=== PATIENT | female | born 1950 | race Caucasian/White ===

== ENCOUNTER → 2016-12-20 | Outpatient (CLI) | payer OTHER ==
[~2016-12-20] MED LIST: AMPICILLIN250 MG PO; Amaryl PO; Ascorbic Acid,Ester- PO; Aspirin E.C. PO; Biotin PO; CALCIUM CITR1 TABLET PO; CELEBREX200 MG PO; Feosol PO; Flexeril PO; LANTUS 3 M100 UNITS/ SC; LYRICA200 MG PO; Lasix PO; Levothroid,Synthroid PO; MAG DELAY64 M1 PO; Micro-K,K-Tab,K-Dur, PO; PRAVACHOL20 MG PO; PROGRAF1 MG PO; Percocet 5/325,Endoc PO; PriLOSEC PO; THERAGRAN1 TABLET PO; VITAMIN D1000 INTUN PO; Vicodin,Norco 5/325 PO; Vitamin B-12 PO; [UNRECOGNIZED DRUG - OTHER] PO; celeXA PO; predniSONE PO
== END | disposition home or self-care (01) ==
LOC: MRI 13:14 → RAD 13:30 → MRI 13:30
DX: R60.9 Edema, unspecified (principal); M19.041 Primary osteoarthritis, right hand; R93.6 Abnormal findings on diagnostic imaging of limbs
CPT/HCPCS: 73218

== ENCOUNTER 2017-07-17 20:03 | Inpatient (IN) | payer OTHER ==
[~2017-07-17] VITALS: Ht 160 cm; Wt 95.5 kg
[~2017-07-17 20:03] MED LIST changes: -Ascorbic Acid,Ester- PO; -Aspirin E.C. PO; +BIOTIN1000 MCG PO; -Biotin PO; +C-10001000 MG PO; +CALCITRATE + D1 EACH PO; -CALCIUM CITR1 TABLET PO; +LASIX20 MG PO; +LO-DOSE ASPIRIN81 M2 PO; -Lasix PO; -Levothroid,Synthroid PO; +PREDNISONE20 MG PO; +SYNTHROID100 MCG PO; -predniSONE PO
[2017-07-17 21:05] LABS: HEMOGLOBIN 12.9 G/DL (11.9-15.5); MCH 31.2 PG (29.0-34.0); MCHC 33.1 G/DL (30.0-36.0); MCV 94.2 FL (83-99); PLATELET COUNT 219 K/uL (156-360); RBC DIS.WIDTH-CV 16.2 % (11.8-14.6); RBC DIS.WIDTH-SD 53.9 % (39-53); RED BLOOD COUNT 4.14 M/uL (3.80-5.20); WHITE BLOOD COUNT 8.1 K/uL (4.1-10.2)
[2017-07-17 21:26] LABS: CHLORIDE 113 mEq/L (99-109); SODIUM 142 mEq/L (136-147)
[2017-07-17 21:27] LABS: GLUCOSE 100 mg/dL (70-99)
[2017-07-17 21:31] LABS: CREATININE 1.5 mg/dL (0.6-1.3); GFR ESTIMATE (CALCULATED) 37 mL/min/
[2017-07-17 21:32] LABS: UREA NITROGEN (BUN) 21 mg/dL (9-23)
[2017-07-17 21:36] LABS: TROP-I INTERPRETATION NEGATIVE; TROPONIN-I < 0.01 ng/mL (0.0-0.30)
[2017-07-17 22:21] LABS: ALBUMIN 4.1 g/dL (3.2-4.8)
[2017-07-17 22:24] LABS: TOTAL PROTEIN 6.9 g/dL (6.4-8.3)
[2017-07-17 22:26] LABS: TOTAL BILIRUBIN 0.6 mg/dL (0.0-1.0)
[2017-07-17 22:27] LABS: ALKALINE PHOSPHATASE 146 IU/L (3-129)
[2017-07-17 22:29] LABS: AST (GOT) 24 IU/L (2-34); DIRECT BILIRUBIN 0.2 mg/dL (0.0-0.3)
[2017-07-17 22:30] LABS: ALT (GPT) 23 IU/L (3-49)
[2017-07-17 22:31] LABS: LIPASE 35 U/L (1.0-51.0)
[2017-07-18] MEDS ORDERED: PROZAC10 MG PO (00:56)
[2017-07-18] MEDS ORDERED: VITAMIN B-650 MG PO (00:58)
[2017-07-18] MEDS ORDERED: GARLIC OIL1000 MG PO (00:58)
[2017-07-18] MEDS ORDERED: ANTIBIOTIC PO (01:00)
[2017-07-18] MEDS ORDERED: FOLIC ACID1 MG PO (01:01)
[2017-07-18] MEDS ORDERED: ZINC50 M1 PO (01:03)
[2017-07-18] MEDS ORDERED: COLESTIPOL HCL1 GM PO (01:07)
[2017-07-18] MEDS ORDERED: PROGRAF1 MG PO (01:09)
[2017-07-18] MEDS ORDERED: LYRICA150 MG PO ×2 (01:11→01:13)
[2017-07-18 04:50] LABS: TROP-I INTERPRETATION NEGATIVE; TROPONIN-I < 0.01 ng/mL (0.0-0.30)
[2017-07-18 05:29] VITALS: BP 127/77
[2017-07-18 08:00] VITALS: BP 103/60
[2017-07-18 09:09] LABS: HEMATOCRIT 35.6 % (36.0-46.0); HEMOGLOBIN 11.6 G/DL (11.9-15.5); MCH 31.1 PG (29.0-34.0); MCHC 32.6 G/DL (30.0-36.0); MCV 95.4 FL (83-99); PLATELET COUNT 183 K/uL (156-360); RBC DIS.WIDTH-CV 16.3 % (11.8-14.6); RBC DIS.WIDTH-SD 54.7 % (39-53); RED BLOOD COUNT 3.73 M/uL (3.80-5.20); WHITE BLOOD COUNT 7.9 K/uL (4.1-10.2)
[2017-07-18 09:29] LABS: TROP-I INTERPRETATION NEGATIVE; TROPONIN-I < 0.01 ng/mL (0.0-0.30)
[2017-07-18 09:48] LABS: CHLORIDE 113 mEq/L (99-109); POTASSIUM 4.2 mEq/L (3.7-5.4); SODIUM 141 mEq/L (136-147)
[2017-07-18 09:49] LABS: GLUCOSE 104 mg/dL (70-99)
[2017-07-18 09:53] LABS: CREATININE 1.3 mg/dL (0.6-1.3); GFR ESTIMATE (CALCULATED) 44 mL/min/
[2017-07-18 09:54] LABS: UREA NITROGEN (BUN) 19 mg/dL (9-23)
[2017-07-18 11:00] VITALS: BP 116/67
[2017-07-18 12:01] LABS: BASE EXCESS -6.3 mEq/L (-3 to +3); BICARBONATE 17.9 mEq/L (22-26); CARBOXY HGB 0.6 % (0-5); COMMENTS - BLOOD GASES A+C+; FI02 21 %; METHEMOGLOBIN 0.3 % (0-1.5); PCO2 31 mm Hg (35-45); PO2 89 mm Hg (80-100); SITE RR; pH 7.37 (7.35-7.45)
[2017-07-18 14:49] LABS: CHLORIDE 113 MEQ/L (99-109); CREATININE 1.3 MG/DL (0.6-1.3); GFR ESTIMATE (CALCULATED) 44 mL/min/; GLUCOSE 154 mg/dL (70-99); SODIUM 141 MEQ/L (136-147); UREA NITROGEN (BUN) 18 mg/dL (9-23)
[2017-07-18 16:00] VITALS: BP 110/58
[2017-07-18 21:07] VITALS: BP 117/56
[2017-07-19 00:50] VITALS: BP 97/53
[2017-07-19 04:22] VITALS: BP 99/60
[2017-07-19 06:21] LABS: HEMATOCRIT 33.4 % (36.0-46.0); HEMOGLOBIN 10.9 G/DL (11.9-15.5); MCH 31.1 PG (29.0-34.0); MCHC 32.6 G/DL (30.0-36.0); MCV 95.4 FL (83-99); PLATELET COUNT 181 K/uL (156-360); RBC DIS.WIDTH-CV 16.4 % (11.8-14.6); RBC DIS.WIDTH-SD 54.6 % (39-53); WHITE BLOOD COUNT 9.1 K/uL (4.1-10.2)
[2017-07-19 06:55] VITALS: BP 108/63
[2017-07-19 07:08] LABS: CHLORIDE 116 MEQ/L (99-109); CREATININE 1.4 MG/DL (0.6-1.3); GFR ESTIMATE (CALCULATED) 40 mL/min/; POTASSIUM 3.8 MEQ/L (3.7-5.4); SODIUM 145 MEQ/L (136-147); UREA NITROGEN (BUN) 23 mg/dL (9-23)
[2017-07-19 07:11] LABS: GLUCOSE 73 mg/dL (70-99)
[2017-07-19 10:45] VITALS: BP 93/52
[2017-07-19] MEDS ORDERED: ELIQUIS5 MG PO (11:47)
== END 2017-07-19 16:05 | disposition home or self-care (01) | DRG 299 ==
LOC: EME 20:03 → EDOF 07-18 00:54 → ENRESERV 07-18 00:56 → 5EAST 07-18 03:19 → ENPENDDIS 07-19 → 5EAST 07-19 16:05
PROVIDERS: Emergency Medicine; Hospitalist; Internal Medicine Hematology & Oncology
DX: I82.411 Acute embolism and thrombosis of right femoral vein (principal); I26.99 Other pulmonary embolism without acute cor pulmonale; I82.4Z1 Acute embolism and thrombosis of unspecified deep veins of right distal lower extremity; M06.9 Rheumatoid arthritis, unspecified; E66.01 Morbid (severe) obesity due to excess calories; Z68.37 Body mass index [BMI] 37.0-37.9, adult; Z98.84 Bariatric surgery status; Z94.0 Kidney transplant status; E78.5 Hyperlipidemia, unspecified; N18.3 Chronic kidney disease, stage 3 (moderate); I12.9 Hypertensive chronic kidney disease with stage 1 through stage 4 chronic kidney disease, or unspecified chronic kidney disease; E11.22 Type 2 diabetes mellitus with diabetic chronic kidney disease; Q61.3 Polycystic kidney, unspecified; M79.7 Fibromyalgia; F32.9 Major depressive disorder, single episode, unspecified; E03.9 Hypothyroidism, unspecified; N30.20 Other chronic cystitis without hematuria; K21.9 Gastro-esophageal reflux disease without esophagitis; Z86.718 Personal history of other venous thrombosis and embolism; Z90.5 Acquired absence of kidney; R06.09 Other forms of dyspnea
CPT/HCPCS: 36600; 71046; 78582; 80048; 80048 91; 80076; 81240 90; 81241 90; 82803; 83690; 83880; 84484; 85027; 85379; 93005; 93306; 93971; 94640; 99281; 99285; A9540; A9567; J1650; J7030; J7507; J7512

== ENCOUNTER 2017-09-10 22:11 | Inpatient (IN) | payer OTHER ==
[~2017-09-10] VITALS: Ht 165.1 cm; Wt 98.4 kg
[~2017-09-10 22:11] MED LIST changes: +ANTIBIOTIC PO; +COLESTIPOL HCL1 GM PO; +ELIQUIS5 MG PO; +FOLIC ACID1 MG PO; +GARLIC OIL1000 MG PO; +LYRICA150 MG PO; +PROZAC10 MG PO; +VITAMIN B-650 MG PO; +ZINC50 M1 PO
[2017-09-10 22:54] LABS: HEMATOCRIT 36.9 % (36.0-46.0); HEMOGLOBIN 12.4 G/DL (11.9-15.5); MCHC 33.6 G/DL (30.0-36.0); MCV 95.1 FL (83-99); PLATELET COUNT 193 K/uL (156-360); RBC DIS.WIDTH-CV 15.9 % (11.8-14.6); RBC DIS.WIDTH-SD 53.7 % (39-53); RED BLOOD COUNT 3.88 M/uL (3.80-5.20)
[2017-09-10 23:00] LABS: CHLORIDE 112 mEq/L (99-109); POTASSIUM 3.6 mEq/L (3.7-5.4); SODIUM 143 mEq/L (136-147)
[2017-09-10 23:02] LABS: GLUCOSE 131 mg/dL (70-99)
[2017-09-10 23:06] LABS: CREATININE 1.7 mg/dL (0.6-1.3); GFR ESTIMATE (CALCULATED) 32 mL/min/
[2017-09-10 23:07] LABS: UREA NITROGEN (BUN) 23 mg/dL (9-23)
[2017-09-10 23:12] LABS: TROP-I INTERPRETATION NEGATIVE; TROPONIN-I 0.02 ng/mL (0.0-0.30)
[2017-09-11] VITALS (7 sets, daily range): BP systolic 90–117; BP diastolic 51–69
[2017-09-11 03:18] LABS: INTER. NORMALIZED RATIO 1.5
[2017-09-11 08:44] LABS: HEMATOCRIT 34.8 % (36.0-46.0); HEMOGLOBIN 11.5 G/DL (11.9-15.5); MCH 31.3 PG (29.0-34.0); MCV 94.8 FL (83-99); PLATELET COUNT 190 K/uL (156-360); RBC DIS.WIDTH-CV 15.7 % (11.8-14.6); RED BLOOD COUNT 3.67 M/uL (3.80-5.20); WHITE BLOOD COUNT 7.3 K/uL (4.1-10.2)
[2017-09-11 09:52] LABS: ALBUMIN 3.5 G/DL (3.2-4.8); ALKALINE PHOSPHATASE 93 IU/L (3-129); ALT (GPT) 35 IU/L (3-49); AST (GOT) 33 IU/L (2-34); CHLORIDE 106 MEQ/L (99-109); CREATININE 1.5 MG/DL (0.6-1.3); GFR ESTIMATE (CALCULATED) 37 mL/min/; GLUCOSE 195 mg/dL (70-99); POTASSIUM 3.9 MEQ/L (3.7-5.4); SODIUM 139 MEQ/L (136-147); TOTAL BILIRUBIN 1.1 MG/DL (0.0-1.0); TOTAL PROTEIN 5.5 G/DL (6.4-8.3); UREA NITROGEN (BUN) 20 mg/dL (9-23)
[2017-09-11 12:57] LABS: INTER. NORMALIZED RATIO 1.3
[2017-09-11] MEDS ORDERED: ELIQUIS5 MG PO (13:05)
[2017-09-11] MEDS ORDERED: CALCIUM CITRATE PO (13:07)
[2017-09-11] MEDS ORDERED: VITAMIN B-121000 MC3 PO (13:09)
[2017-09-11 13:10] LABS: PTT 67.7 SEC (25-37)
[2017-09-11] MEDS ORDERED: LASIX20 MG PO (13:11)
[2017-09-11] MEDS ORDERED: POTASSIUM GLUCO99 M1 PO (13:12)
[2017-09-11] MEDS ORDERED: CULTURELLE CAP1 EACH PO (13:15)
[2017-09-11 18:29] LABS: APPEARANCE CLEAR ((CLEAR)); BILIRUBIN NEGATIVE; BLOOD NEGATIVE; COLOR YELLOW ((YELLOW)); GLUCOSE (STRIP) NEGATIVE; KETONES NEGATIVE; LEUKOCYTES TRACE; NITRITE NEGATIVE; PROTEIN (STRIP) NEGATIVE; SPECIFIC GRAVITY 1.005 (1.000-1.030); UROBILINOGEN 0.2 MG/DL (0.2-1.0)
[2017-09-11 19:09] LABS: BACTERIA RARE /HPF; EPITHELIAL CELLS RARE /HPF; HYALINE CASTS 0-5 /LPF; MUCUS TRACE /LPF; RED BLOOD CELLS 0-5 /HPF (0-5); UCUL ADDED? NO; WHITE BLOOD CELLS 0-5 /HPF (0-5)
[2017-09-12 03:31] VITALS: BP 98/59
[2017-09-12 07:57] VITALS: BP 97/52
[2017-09-12 09:14] LABS: HEMATOCRIT 30.7 % (36.0-46.0); HEMOGLOBIN 10.1 G/DL (11.9-15.5); MCH 31.8 PG (29.0-34.0); MCHC 32.9 G/DL (30.0-36.0); MCV 96.5 FL (83-99); PLATELET COUNT 164 K/uL (156-360); RBC DIS.WIDTH-CV 15.9 % (11.8-14.6); RBC DIS.WIDTH-SD 53.9 % (39-53); RED BLOOD COUNT 3.18 M/uL (3.80-5.20); WHITE BLOOD COUNT 6.1 K/uL (4.1-10.2)
[2017-09-12 10:21] LABS: CHLORIDE 113 MEQ/L (99-109); CREATININE 1.4 MG/DL (0.6-1.3); GFR ESTIMATE (CALCULATED) 40 mL/min/; GLUCOSE 99 mg/dL (70-99); POTASSIUM 3.5 MEQ/L (3.7-5.4); SODIUM 144 MEQ/L (136-147); UREA NITROGEN (BUN) 25 mg/dL (9-23)
[2017-09-12 11:30] VITALS: BP 142/72
[2017-09-12 15:53] VITALS: BP 107/64
[2017-09-13 00:07] VITALS: BP 98/57
[2017-09-13 03:50] VITALS: BP 102/61
[2017-09-13 04:14] VITALS: BP 102/61
[2017-09-13 06:35] LABS: HEMATOCRIT 35.8 % (36.0-46.0); MCH 30.6 PG (29.0-34.0); MCHC 30.7 G/DL (30.0-36.0); MCV 99.7 FL (83-99); PLATELET COUNT 152 K/uL (156-360); RBC DIS.WIDTH-CV 15.9 % (11.8-14.6); RBC DIS.WIDTH-SD 55.2 % (39-53); RED BLOOD COUNT 3.59 M/uL (3.80-5.20); WHITE BLOOD COUNT 5.8 K/uL (4.1-10.2)
[2017-09-13 07:03] VITALS: BP 120/68
[2017-09-13 09:59] LABS: CHLORIDE 111 MEQ/L (99-109); CREATININE 1.3 MG/DL (0.6-1.3); FERRITIN 138 NG/ML (10-291); GFR ESTIMATE (CALCULATED) 44 mL/min/; IRON 60 MCG/DL (35-150); SODIUM 141 MEQ/L (136-147); TRANSFERRIN (TIBC) 179.1 mg/dL (215-380); TRANSFERRIN SATUR. 34 % (20-55); UREA NITROGEN (BUN) 25 mg/dL (9-23)
[2017-09-13 10:03] LABS: GLUCOSE 169 mg/dL (70-99); POTASSIUM 4.6 MEQ/L (3.7-5.4)
[2017-09-13 10:10] LABS: FOLIC ACID (FOLATE) 11.9 NG/ML (5.0-22.0)
[2017-09-13 11:35] VITALS: BP 85/58
[2017-09-13 13:27] VITALS: BP 100/70
== END 2017-09-13 15:43 | disposition home or self-care (01) | DRG 683 ==
LOC: EME 22:11 → EDOF 09-11 02:54 → 5EAST 09-11 02:54 → ENRESERV 09-11 02:56 → 5EAST 09-11 04:22 → ENPENDDIS 09-13 → 5EAST 09-13 15:43
PROVIDERS: Hospitalist; Internal Medicine; Physician Assistant
DX: I12.9 Hypertensive chronic kidney disease with stage 1 through stage 4 chronic kidney disease, or unspecified chronic kidney disease (principal); N18.3 Chronic kidney disease, stage 3 (moderate); S82.142A Displaced bicondylar fracture of left tibia, initial encounter for closed fracture; W01.0XXA Fall on same level from slipping, tripping and stumbling without subsequent striking against object, initial encounter; Y92.009 Unspecified place in unspecified non-institutional (private) residence as the place of occurrence of the external cause; R79.1 Abnormal coagulation profile; R06.00 Dyspnea, unspecified; R00.2 Palpitations; E87.6 Hypokalemia; Q61.3 Polycystic kidney, unspecified; Z94.0 Kidney transplant status; D63.1 Anemia in chronic kidney disease; E03.9 Hypothyroidism, unspecified; E78.5 Hyperlipidemia, unspecified; E66.01 Morbid (severe) obesity due to excess calories; Z68.35 Body mass index [BMI] 35.0-35.9, adult; M17.12 Unilateral primary osteoarthritis, left knee; M79.7 Fibromyalgia; E55.9 Vitamin D deficiency, unspecified; F41.9 Anxiety disorder, unspecified; Z86.711 Personal history of pulmonary embolism; Z86.718 Personal history of other venous thrombosis and embolism; Z91.81 History of falling; Z98.84 Bariatric surgery status; Z79.01 Long term (current) use of anticoagulants
CPT/HCPCS: 71046; 73560; 73590; 78582; 80048; 80053; 81003; 82607; 82728; 82746; 83540; 84466; 84484; 85027; 85379; 85610; 85730; 93005; 93971; 99281; 99284; A9540; A9567; J7030; J7507